=== PATIENT | male | born 1985 | race Caucasian/White ===

== ENCOUNTER 2021-07-21 01:34 | Emergency (ER) | payer OTHER ==
[2021-07-21 02:15] LABS: BASOPHIL 1.1 % (0-2); EOSINOPHIL 3.7 % (0-5); HCT 45.8 % (42.0-52.0); HGB 15.4 g/dl (13.2-18.0); LYMPHOCYTE 38.8 % (15-48); MCH 31.2 pg (25.0-31.0); MCHC 33.6 g/dL (32.0-36.0); MCV 92.9 fL (78.0-100.0); MONOCYTE 12.2 % (0-12); MPV 10.1 fL (6.0-9.5); NRBC 0; PLT 226 K/uL (150-400); RBC 4.93 M/uL (4.70-6.00); RDW 17.1 % (11.5-14.0); WBC 6.6 K/uL (4.0-10.5)
[2021-07-21 02:37] LABS: AMPHETAMINES NEGATIVE (NEGATIVE); BARBITURATES NEGATIVE (NEGATIVE); ECSTASY (MDMA) NEGATIVE (NEGATIVE); MARIJUANA (THC) NEGATIVE (NEGATIVE); METHADONE NEGATIVE (NEGATIVE); OPIATES NEGATIVE (NEGATIVE); OXYCODONE NEGATIVE (NEGATIVE)
[2021-07-21 02:40] LABS: ALBUMIN 2.8 g/dL (3.4-5.0); ALKALINE PHOSHATASE 184 U/L (46-116); ALT 27 U/L (16-63); AST 44 U/L (15-37); BILIRUBIN - TOTAL 2.1 mg/dL (0.2-1.0); BUN 13 mg/dL (7-18); BUN/CREAT RATIO (CALC) 10.2 RATIO; CHLORIDE 96 mmol/L (98-107); CO2 (BICARBONATE) 33 mmol/L (21-32); CREATININE 1.27 mg/dL (0.67-1.17); GLOBULIN (CALCULATION) 4.6 g/dL; GLUCOSE 85 mg/dL (74-106); POTASSIUM 2.9 mmol/L (3.5-5.1); TOTAL PROTEIN 7.4 g/dL (6.4-8.2)
== END 2021-07-21 04:30 ==
LOC: FER 01:34
PROVIDERS: Emergency Medicine Emergency Medical Services
DX: E10.51 Type 1 diabetes mellitus with diabetic peripheral angiopathy without gangrene (principal); E87.6 Hypokalemia; I42.9 Cardiomyopathy, unspecified; I10 Essential (primary) hypertension; Z02.79 Encounter for issue of other medical certificate; Z95.810 Presence of automatic (implantable) cardiac defibrillator
CPT/HCPCS: 36415; 80053; 80305; 83036; 85025; 86140; 99285; G0480

== ENCOUNTER 2021-09-19 03:25 | Emergency (ER) | payer OTHER ==
[2021-09-19 04:26] LABS: BASOPHIL 0.9 % (0-2); HCT 39.4 % (42.0-52.0); HGB 13.2 g/dl (13.2-18.0); LYMPHOCYTE 28.4 % (15-48); MCH 31.3 pg (25.0-31.0); MCHC 33.5 g/dL (32.0-36.0); MCV 93.4 fL (78.0-100.0); MONOCYTE 9.1 % (0-12); MPV 10.3 fL (6.0-9.5); NEUTROPHIL 58.2 % (41-80); NRBC 0; PLT 212 K/uL (150-400); RBC 4.22 M/uL (4.70-6.00); RDW 17.3 % (11.5-14.0); WBC 7.4 K/uL (4.0-10.5)
[2021-09-19 04:47] LABS: BUN/CREAT RATIO (CALC) 17.7 RATIO; CREATININE 1.41 mg/dL (0.67-1.17); POTASSIUM 3.3 mmol/L (3.5-5.1)
[2021-09-19 05:28] LABS: CORONAVIRUS 2019 SARS-COV-2 NEGATIVE (NEGATIVE); INFLUENZA A NAA NEGATIVE (NEGATIVE)
== END 2021-09-19 05:53 | disposition home or self-care (01) ==
LOC: FER 03:25
PROVIDERS: Internal Medicine
DX: K04.7 Periapical abscess without sinus (principal); E11.22 Type 2 diabetes mellitus with diabetic chronic kidney disease; N18.9 Chronic kidney disease, unspecified; I50.9 Heart failure, unspecified; Z88.8 Allergy status to other drugs, medicaments and biological substances; Z79.84 Long term (current) use of oral hypoglycemic drugs; Z79.899 Other long term (current) drug therapy; Z20.822 Contact with and (suspected) exposure to COVID-19
CPT/HCPCS: 36415; 80048; 84145; 85025; 93005; J7040; U0002